=== PATIENT | female | born 1980 | race Caucasian/White ===

== ENCOUNTER 2019-04-15 17:04 | Emergency (ER) | payer OTHER ==
[~2019-04-15] VITALS: Ht 160 cm; Wt 66.7 kg
[2019-04-15 17:15] VITALS: BP 127/84
[2019-04-15] MEDS ORDERED: IBUPROFEN 400 MG TABLET. PO ONE (17:30)
--- NOTE | 2019-04-15 17:35 | PHYS DOC ---
Past History Past Medical History: No Pertinent History Past Surgical History: No Surgical History Smoking: Non-smoker Alcohol Use: None Drug Use: None Adult General Chief Complaint Chief Complaint: EYE PROBLEMS HPI HPI Patient is a 38 year old female who presents with report of left eyelid and eyebrow swelling and bruising after he 13 year old son accidentally hit her with back of his head just prior to arrival. Reports she was "tickling him and his head reared back." Denies LOC. Denies nausea or vomiting. Denies . Denies epistaxis or laceration. Denies eyepain or use of contacts. Reports wears glasses but wasn't wearing them at time of injury. Review of Systems Review of Systems Constitutional: Denies fever or chills Eyes: Denies change in visual acuity or eye pain; reports swelling to left eyelid and eyebrow HENT: Denies epistaxis GI: Denies nausea, vomiting Integument: Denies laceration; reports bruising and swelling Neurologic: Denies headache, focal weakness or sensory changes Complete systems were reviewed and found to be within normal limits, except as documented in this note. Allergies Allergies Allergies Coded Allergies Type Severity Reaction Last Updated Verified codeine Allergy Unknown 04/15/19 Yes Physical Exam Physical Exam Constitutional: Well developed, well nourished, no acute distress HENT: Normocephalic, bilateral TMs normal, oropharynx moist, nose normal Eyes: PERRL, EOMI, conjunctiva normal, no discharge, denies eye pain, left upper eyelid and eyebrow with ecchymosis and swelling to lateral aspect consistent for traumatic hematoma, no laceration Neck: Normal range of motion, no tenderness Lungs & Thorax: No respiratory distress, atraumatic Skin: Warm, dry, bruising and edema to left eyelid as above Extremities: No tenderness, no edema. Neurologic: Alert and oriented X 3, normal motor function, normal sensory function, no focal deficits noted Psychologic: Affect normal, judgement normal EKG EKG [] Radiology/Procedures Radiology/Procedures [] Course & Med Decision Making Course & Med Decision Making Patient presents with traumatic hematoma of left eyelid. EOMI intact. Eye unaffected. Denies pain to eye. Denies epistaxis. No signs of skull fracture. ICE applied. Patient stable for discharge home with outpatient follow-up with PCP. Discussed findings and plan with patient and family, who acknowledge understanding and agreement. Johanny Disclaimer Johanny Disclaimer This electronic medical record was generated, in whole or in part, using a voice recognition dictation system. Departure Departure: Impression: Primary Impression: Traumatic hematoma of left eyelid Disposition: HOME, SELF-CARE Condition: STABLE Referrals: PCP,NO (PCP) Patient Instructions: Facial or Scalp Contusion, [id number] Additional Instructions: ICE area 20 min on and leave off for next 20 mins. Repeat as needed for next few days. Use over the counter Tylenol and/or Ibuprofen for pain. Problem Qualifiers Primary Impression: Traumatic hematoma of left eyelid Encounter type: initial encounter Qualified Codes: S00.12XA - Contusion of left eyelid and periocular area, initial encounter ALISSA MANN DO Apr 15, 2019 17:35
== END 2019-04-15 17:58 | disposition home or self-care (01) ==
LOC: ER 17:04
DX: S00.12XA Contusion of left eyelid and periocular area, initial encounter (principal); Z88.5 Allergy status to narcotic agent; W22.8XXA Striking against or struck by other objects, initial encounter; Y93.89 Activity, other specified; Y92.89 Other specified places as the place of occurrence of the external cause; Y99.8 Other external cause status
CPT/HCPCS: 99282